=== PATIENT | male | born 1990 | race Two or more races ===

== ENCOUNTER 2018-09-12 22:06 | Emergency (ER) | payer SELFPAY ==
[~2018-09-12] VITALS: Ht 177.8 cm; Wt 72.6 kg
[2018-09-12 22:23] VITALS: BP 135/86
--- NOTE | 2018-09-12 22:47 | PHYS DOC ---
Past History Past Medical History: No Pertinent History Alcohol Use: None Drug Use: Marijuana Adult General Chief Complaint Chief Complaint: FOOT INJURY PAIN [facility] HPI Patient is a 27-year-old male who presents with injury to his left foot. Patient states that he was running through his house when he accidentally kicked his foot against the edge of the door. Patient rates pain as moderate and states pain is worsened with weightbearing. He denies any other injuries. Review of Systems Review of Systems Constitutional: Denies fever or chills [] Respiratory: Denies cough or shortness of breath [] Cardiovascular: No additional information not addressed in HPI [] Musculoskeletal: Positive left foot/toe pain [] Allergies Allergies Allergies Coded Allergies Type Severity Reaction Last Updated Verified ibuprofen Allergy Unknown 09/12/18 Yes Physical Exam Physical Exam Constitutional: Well developed, well nourished, no acute distress, non-toxic appearance. [] Cardiovascular:Heart rate regular rhythm, no murmur [] Lungs & Thorax: Bilateral breath sounds clear to auscultation [] Extremities: Examination of left foot demonstrates deformity to the fourth toe at the interphalangeal joint. [] Neurologic: Alert and oriented X 3, no focal deficits noted. [] Current Patient Data Vital Signs Vital Signs Date Time Temp Pulse Resp B/P (MAP) Pulse Ox O2 Delivery O2 Flow Rate FiO2 09/12/18 22:23 98.1 98 18 96 EKG EKG [] Radiology/Procedures Radiology/Procedures [] Impressions: X-ray of left foot demonstrates a fracture through the base of the proximal phalanx of fourth toe with slight lateral angulation Course & Med Decision Making Course & Med Decision Making Pertinent Labs and Imaging studies reviewed. (See chart for details) [] Dragon Disclaimer Dragon Disclaimer This electronic medical record was generated, in whole or in part, using a voice recognition dictation system. Departure Departure: Impression: Primary Impression: Fracture of fourth toe, left, closed Disposition: 01 HOME, SELF-CARE Condition: STABLE Referrals: PCP,NO (PCP) Patient Instructions: Toe Fracture Scripts Hydrocodone Bit/Acetaminophen (NORCO 5-325 TABLET) 1 Each Tablet 1 TAB PO PRN Q4HRS PRN for PAIN, #15 TAB 0 Refills Prov: BRODIE VILLASEÑOR Jr. DO 09/12/18 Problem Qualifiers Primary Impression: Fracture of fourth toe, left, closed Encounter type: initial encounter Qualified Codes: S92.502A - Displaced unspecified fracture of left lesser toe(s), initial encounter for closed fracture BRODIE VILLASEÑOR Jr. DO September 12, 2018 22:47
[2018-09-12] MEDS ORDERED: HYDR-3165 PO (23:05)
[2018-09-12] MEDS ORDERED: HYDROcodone/APAP 7.5/325MG 1 TAB TABLET ONE (23:09)
[2018-09-12] MEDS ORDERED: HYDROcodone/APAP 7.5/325MG 1 TAB TABLET PO ONE (23:15)
--- NOTE | 2018-09-13 00:05 | RAD ---
Three-view left foot radiographs 09/12/2018 CLINICAL HISTORY: Injury to the left fourth toe while running in house. Deformity of the left fourth toe. AP, lateral and oblique digital radiographs of the left foot were obtained. An acute transverse fracture of the proximal metaphysis/diaphysis of the proximal phalanx of the left fourth toe is seen. Mild lateral angulation of the distal fracture fragment is noted. No additional fracture is seen. IMPRESSION: Acute fracture of the proximal phalanx of the left fourth toe. Electronically signed by: Cruz Couch MD (09/13/2018 12:02 AM) [facility]
== END 2018-09-12 23:33 | disposition home or self-care (01) ==
LOC: ER 22:27
DX: S92.512A Displaced fracture of proximal phalanx of left lesser toe(s), initial encounter for closed fracture (principal); Z88.6 Allergy status to analgesic agent; W22.8XXA Striking against or struck by other objects, initial encounter; Y93.02 Activity, running; Y92.89 Other specified places as the place of occurrence of the external cause; Y99.8 Other external cause status
CPT/HCPCS: 73630; 99284

== ENCOUNTER 2018-11-19 15:30 | Emergency (ER) | payer OTHER ==
[~2018-11-19] VITALS: Ht 180.3 cm; Wt 70.7 kg
[~2018-11-19 15:30] MED LIST: HYDR-3165 PO
[2018-11-19 15:48] VITALS: BP 137/84
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
[2018-11-19] MEDS ORDERED: ORPH-16 PO (16:06)
[2018-11-19] MEDS ORDERED: ACET325T9 PO (16:06)
== END 2018-11-19 16:14 | disposition home or self-care (01) ==
LOC: ER 15:30
DX: M54.2 Cervicalgia (principal); M54.89 Other dorsalgia; F17.210 Nicotine dependence, cigarettes, uncomplicated; Z88.6 Allergy status to analgesic agent; V49.49XA Driver injured in collision with other motor vehicles in traffic accident, initial encounter; Y93.I9 Activity, other involving external motion; Y92.488 Other paved roadways as the place of occurrence of the external cause; Y99.8 Other external cause status
CPT/HCPCS: 99283